=== PATIENT | male | born 1945 | race Caucasian/White ===

== ENCOUNTER → 2017-10-15 | Outpatient (CLI) | payer OTHER, MEDICARE | LOC: BMCIMAGING 14:01 → EDSTATUS 14:02 | PROVIDERS: ATTEND Internal Medicine | DX: M24.174 Other articular cartilage disorders, right foot (principal); M24.175 Other articular cartilage disorders, left foot ==

== ENCOUNTER 2019-01-17 10:01 | Inpatient (IN) | payer OTHER, MEDICARE | END 2019-01-19 13:03 | LOC: F3N 14:24 ==